=== PATIENT | male | born 1985 | race Caucasian/White ===

== ENCOUNTER 2019-04-26 20:33 | Emergency (ER) | payer OTHER ==
[~2019-04-26] VITALS: Ht 170.2 cm; Wt 88.0 kg
[2019-04-26] MEDS ORDERED: OMEPRAZOLE 20 M20 M1 PO (20:47)
[2019-04-26 21:20] LABS: ABSOLUTE BASOPHILS 0.1 thou/uL (0.0-0.2); ABSOLUTE LYMPHOCYTES 0.9 thou/uL (0.8-5.3); ABSOLUTE MONOCYTES 0.8 thou/uL (0.0-1.2); BASOPHILS 0.6 %; EOSINOPHILS 0.3 %; HEMATOCRIT 43.3 % (42.0-52.0); HEMOGLOBIN 15.2 gm/dL (14.0-18.0); LYMPHOCYTES 9.4 %; MCH 30.4 pg (26.0-34.0); MCHC 35.2 g/dL (28.0-37.0); MCV 86.6 fL (80.0-100.0); MONOCYTES 7.7 %; MPV 7.9 fl. (7.2-11.1); NUCLEATED RBCS 0 /100WBC; PLATELET COUNT* 218 thou/uL (150-400); RDW-CV 13.5 % (10.5-14.5); WBC 9.7 thou/uL (4.0-11.0)
[2019-04-26 21:33] LABS: TOTAL BILIRUBIN 0.8 mg/dL (<0.1-1.0); TOTAL PROTEIN 7.4 g/dL (6.4-8.2)
[2019-04-26] MEDS ORDERED: ZOFRAN ODT4 MG PO (22:17)
[2019-04-26 22:28] VITALS: BP 125/66
== END 2019-04-26 22:28 | disposition home or self-care (01) ==
LOC: M.ERS 20:33
PROVIDERS: Emergency Medicine
DX: R11.2 Nausea with vomiting, unspecified (principal); R19.7 Diarrhea, unspecified